=== PATIENT | female | born 1955 | race Caucasian/White ===

== ENCOUNTER → 2016-08-03 | Outpatient (REF) | payer OTHER ==
[~2016-08-03] MED LIST: AUGM500T34 PO; [UNRECOGNIZED DRUG - CODE] PO
[2016-08-03 19:30] LABS: FERRITIN 5 NG/ML (8-252); PERCENT SATURATION 10.8 % (13.2-37.4); TOTAL IRON BINDING CAPACITY 426 UG/DL (250-450)
== END ==
LOC: M LAB REF 16:16
PROVIDERS: ATTEND Nurse Practitioner Adult Health
DX: D50.9 Iron deficiency anemia, unspecified (principal); Z20.5 Contact with and (suspected) exposure to viral hepatitis

== ENCOUNTER → 2016-08-05 | Outpatient (CLI) | payer OTHER ==
--- NOTE | 2016-08-05 17:21 | REP ---
Cervical spine series: Eight views: History: Pain and stiffness. Findings: There is straightening of the normal cervical lordosis. There is degenerative disc narrowing and anterior posterior osteophytic ridging at C 4-5, C5-6 and C6-7. Mild discogenic spurring is seen at C3-4. Flexion/extension lateral views show no subluxation or instability. Open mouth odontoid and AP views are unremarkable. Oblique images demonstrate uncovertebral spurring producing neural foraminal encroachment bilaterally at C4-5 and on the right at C5-6. Swimmers lateral view shows no additional abnormality. Impression: Degenerative spondylosis changes with a bilateral C4-5 and right-sided C5-6 neural foraminal encroachment. Straightening. Signed by Franko Evangelista MD 08/06/2016 08:02 A
== END ==
LOC: M RAD 15:38
PROVIDERS: ATTEND Nurse Practitioner Adult Health
DX: M47.812 Spondylosis without myelopathy or radiculopathy, cervical region (principal)

== ENCOUNTER → 2017-09-30 | Outpatient (REF) | payer OTHER ==
[2017-09-30 17:59] LABS: IRON (FE) 39 UG/DL (50-170)
[2017-09-30 17:59] LABS: FERRITIN 5 NG/ML (8-252)
[2017-09-30 18:55] LABS: HEMATOCRIT 38.6 % (36.0-47.0)
[2017-10-01 13:04] LABS: PRETREATED FOLATE FOR RBCFOL 8.3 NG/ML; RBC FOLATE 451.6 NG/ML (280-791)
== END ==
LOC: M LAB REF 16:47
DX: D50.9 Iron deficiency anemia, unspecified (principal)
CPT/HCPCS: 83540

== ENCOUNTER → 2017-10-05 | Outpatient (REF) | payer OTHER ==
[2017-10-05 21:11] LABS: INFLUENZA A AMPLIFICATION NEGATIVE (NEGATIVE); INFLUENZA B AMPLIFICATION NEGATIVE (NEGATIVE)
== END ==
LOC: M LAB REF 20:15
DX: J11.1 Influenza due to unidentified influenza virus with other respiratory manifestations (principal)

== ENCOUNTER 2019-01-23 09:21 | Day surgery (SDC) | payer OTHER ==
[~2019-01-23] VITALS: Ht 167.6 cm; Wt 94.3 kg
[~2019-01-23 09:21] MED LIST changes: +BUPR300T34 PO; +CELE10TA PO; +D32000CA PO; +ESTR625TA PO; +FERR325T3 PO; +NEXI40CA PO; +NS 1,000 ML IV ONE; +ZOLP6.25 PO
--- NOTE | 2019-01-23 10:13 | ROOR ---
Patient Name: Pema Jones Procedure Date: 01/23/2019 9:58 AM Date of : 1955 Age: 63 Room: [facility] Gender: Female Note Status: Finalized Procedure: Upper Endoscopy + Biopsies Indications: Iron deficiency anemia Providers: Fidel Vizcarra MD Referring MD: Katelin Velez NP Requesting Provider: Medicines: Monitored Anesthesia Care Complications: No immediate complications. Procedure: Pre-Anesthesia Assessment: - The heart rate, respiratory rate, oxygen saturations, blood pressure, adequacy of pulmonary ventilation, and response to care were monitored throughout the procedure. The Endoscope was introduced through the mouth, and advanced to the second part of duodenum. The upper GI endoscopy was accomplished without difficulty. The patient tolerated the procedure well. Findings: The Z-line was variable and was found 35 cm from the incisors. Multiple biopsies were obtained with cold forceps for evaluation to rule out Vazquez's Esophagus randomly at the gastroesophageal junction. A large hiatal hernia was present. No other significant abnormalities were identified in a careful examination of the stomach. Biopsies were taken with a cold forceps in the gastric antrum for Helicobacter pylori testing. The exam of the duodenum was otherwise normal. Biopsies for histology were taken with a cold forceps in the first portion of the duodenum for evaluation of celiac disease. The exam was otherwise without abnormality. Impression: - Z-line variable, 35 cm from the incisors. - Large hiatal hernia. - The examination was otherwise normal. - Multiple biopsies were obtained at the gastroesophageal junction. - Biopsies were taken with a cold forceps for Helicobacter pylori testing. - Biopsies were taken with a cold forceps for evaluation of celiac disease. - The examination was otherwise normal. Recommendation: - Patient has a contact number available for emergencies. The signs and symptoms of potential delayed complications were discussed with the patient. Return to normal activities tomorrow. Written discharge instructions were provided to the patient. - High fiber diet. - Discharge patient to home. - Follow an antireflux regimen. - Continue present medications. - Await pathology results. - Telephone GI clinic for pathology results in 1 week. - Check Portal Online for Path Results.([email or web address]) - The findings and recommendations were discussed with the patient's family. Fidel Vizcarra MD Fidel Vizcarra MD 01/23/2019 10:13:31 AM Electronically signed by Fidel Vizcarra MD Number of Addenda: 0 Note Initiated On: 01/23/2019 9:58 AM Estimated Blood Loss: Estimated blood loss: none.
--- NOTE | 2019-01-23 10:33 | ROOR ---
Patient Name: Pema Jones Procedure Date: 01/23/2019 9:58 AM Date of : 1955 Age: 63 Room: [facility] Gender: Female Note Status: Finalized Procedure: Total Colonoscopy to Cecum Indications: Iron deficiency anemia Providers: Fidel Vizcarra MD Referring MD: Katelin Velez NP Requesting Provider: Medicines: Monitored Anesthesia Care Complications: No immediate complications. Procedure: Pre-Anesthesia Assessment: - The heart rate, respiratory rate, oxygen saturations, blood pressure, adequacy of pulmonary ventilation, and response to care were monitored throughout the procedure. The Colonoscope was introduced through the anus and advanced to the cecum, identified by appendiceal orifice and ileocecal valve. The colonoscopy was performed without difficulty. The patient tolerated the procedure well. The quality of the bowel preparation was good. Findings: The perianal and digital rectal examinations were normal. Non-bleeding internal hemorrhoids were found during retroflexion. The hemorrhoids were small and Grade I (internal hemorrhoids that do not prolapse). Scattered small-mouthed diverticula were found in the recto-sigmoid colon, sigmoid colon and descending colon. The exam was otherwise without abnormality on direct and retroflexion views. Impression: - Non-bleeding internal hemorrhoids. - Diverticulosis in the recto-sigmoid colon, in the sigmoid colon and in the descending colon. - The examination was otherwise normal on direct and retroflexion views. - No specimens collected. - The exam was otherwise normal to the cecum. Recommendation: - Patient has a contact number available for emergencies. The signs and symptoms of potential delayed complications were discussed with the patient. Return to normal activities tomorrow. Written discharge instructions were provided to the patient. - High fiber diet. - Discharge patient to home. - Continue present medications. - Repeat colonoscopy in 10 years for screening purposes. - Return to referring physician. - The findings and recommendations were discussed with the patient's family. Fidel Vizcarra MD Fidel Vizcarra MD 01/23/2019 10:33:26 AM Electronically signed by Fidel Vizcarra MD Number of Addenda: 0 Note Initiated On: 01/23/2019 9:58 AM Estimated Blood Loss: Estimated blood loss: none.
[2019-01-23] MEDS ORDERED: PROPOFOL 200 MG/20 ML VIAL As Ordered ONE ×2 (10:50→10:51)
[2019-01-23] MEDS ORDERED: LIDOCAINE 2% INJ 100 MG/5 ML SDV (FOR ANES.) As Ordered ONE (10:50)
[2019-01-23 11:00] VITALS: BP 168/88
== END 2019-01-23 11:11 | disposition home or self-care (01) ==
LOC: M OPP 09:21
PROVIDERS: ATTEND Internal Medicine Gastroenterology
DX: K64.0 First degree hemorrhoids (principal); K57.30 Diverticulosis of large intestine without perforation or abscess without bleeding; K22.8 Other specified diseases of esophagus; K44.9 Diaphragmatic hernia without obstruction or gangrene; D50.9 Iron deficiency anemia, unspecified

== ENCOUNTER → 2019-05-11 | Outpatient (REF) | payer OTHER ==
[~2019-05-11] MED LIST changes: -NS 1,000 ML IV ONE
== END ==
LOC: M LAB REF 16:44
PROVIDERS: ATTEND Nurse Practitioner Adult Health
DX: D50.9 Iron deficiency anemia, unspecified (principal)

== ENCOUNTER 2019-08-21 17:15 | Emergency (ER) | payer OTHER ==
[~2019-08-21] VITALS: Ht 167.6 cm; Wt 98.5 kg
[~2019-08-21 17:15] MED LIST changes: -BUPR300T34 PO; +BUPR300T92 PO
[2019-08-21 17:16] VITALS: BP 169/96
== END 2019-08-21 19:03 | disposition left against medical advice (07) ==
LOC: M ED 17:15
DX: Z53.21 Procedure and treatment not carried out due to patient leaving prior to being seen by health care provider (principal)

== ENCOUNTER 2019-10-08 14:10 | Emergency (ER) | payer OTHER ==
[~2019-10-08] VITALS: Ht 167.6 cm; Wt 90.9 kg
[2019-10-08] MEDS ORDERED: HM A10TA PO (14:39)
[2019-10-08 14:59] LABS: BASO # 0.1 10^3/uL (0.0-0.2); BASO % 1.3 % (0.0-1.0); EOS # 0.1 10^3/uL (0.0-0.5); HEMATOCRIT 43.2 % (36.0-47.0); HEMOGLOBIN 14.5 g/dl (12.0-15.5); LYMPH # 1.6 10^3/uL (1.5-5.0); LYMPH % 26.8 % (24.0-44.0); MEAN CORPUSCULAR HEMOGLOBIN 29.4 pg (27.0-33.0); MEAN CORPUSCULAR HGB CONC 33.6 g/dl (32.0-36.5); MEAN CORPUSCULAR VOLUME 87.6 fl (80.0-96.0); MONO # 0.5 10^3/uL (0.0-0.8); MONO % 7.5 % (0.0-5.0); NEUTROPHILS # 3.7 10^3/uL (1.5-8.5); NEUTROPHILS % 62.1 % (36.0-66.0); PLATELET COUNT, AUTOMATED 278 10^3/uL (150-450); RED BLOOD COUNT 4.93 10^6/uL (4.00-5.40)
[2019-10-08 15:28] LABS: ALBUMIN 3.6 GM/DL (3.2-5.2); ALT/SGPT 17 U/L (12-78); BILIRUBIN,DIRECT 0.2 MG/DL (0.0-0.2); BILIRUBIN,TOTAL 0.4 MG/DL (0.2-1.0); BLOOD UREA NITROGEN 17 MG/DL (7-18); CALCIUM LEVEL 8.9 MG/DL (8.8-10.2); CARBON DIOXIDE LEVEL 24 MEQ/L (21-32); CHLORIDE LEVEL 112 MEQ/L (98-107); CK-MB VALUE MASS < 1.0 NG/ML (<3.6); CPK CREATINE PHOSPHOKINASE 48 U/L (26-192); CREATININE FOR GFR 0.73 MG/DL (0.55-1.30); GLOMERULAR FILTRATION RATE > 60.0 (>45); GLUCOSE, FASTING 92 MG/DL (70-100); MAGNESIUM LEVEL 2.3 MG/DL (1.8-2.4); MB/CK RELATIVE INDEX 2.08 (< OR =4); POTASSIUM SERUM 4.1 MEQ/L (3.5-5.1); SODIUM LEVEL 141 MEQ/L (136-145); TOTAL PROTEIN 6.6 GM/DL (6.4-8.2); TROPONIN I < 0.02 NG/ML (< 0.10)
[2019-10-08 16:42] VITALS: BP 128/90
--- NOTE | 2019-10-09 07:25 | ECGEPIP ---
[facility] - ED Test Date: 2019-10-08 Pat Name: REUBEN ZELAYA Department: Room: - Gender: Female Student Support Advisor: : 1955 Requested By: Madison Duarte Order Number: [id number] Reading MD: Meri Gifford Measurements Intervals [place] Rate: 110 P: 71 IN: 124 QRS: 7 QRSD: 97 T: 24 QT: 314 QTc: 425 Interpretive Statements SINUS TACHYCARDIA NONSPECIFIC ST & T-WAVE ABNORMALITY ABNORMAL RHYTHM ECG NO PRIOR Electronically Signed on 10-09-2019 7:25:09 EDT by Meri Gifford
--- NOTE | 2019-10-09 08:21 | REP ---
REASON: Chest pain. FINDINGS: The technique utilized in obtaining the radiograph has magnified the cardiac silhouette and accentuated the interstitial markings. The superior mediastinal structures are midline. The cardiac silhouette is unremarkable in size, shape, and position. The diaphragmatic surfaces of the lungs are regular, and the costophrenic angles are clear. The pulmonary newman are clear. The imaged osseous structures are intact. IMPRESSION: There is no acute cardiopulmonary disease. Electronically Signed by Dann Brunner DO 10/09/2019 01:30 P
== END 2019-10-08 16:44 | disposition home or self-care (01) ==
LOC: EDBD 14:10 → M ED 14:10
DX: R00.2 Palpitations (principal); E78.9 Disorder of lipoprotein metabolism, unspecified; Z79.899 Other long term (current) drug therapy

== ENCOUNTER 2020-05-01 08:12 | Emergency (ER) | payer OTHER ==
[~2020-05-01] VITALS: Ht 167.6 cm; Wt 93.5 kg
[2020-05-01 08:12] VITALS: BP 145/74
[~2020-05-01 08:12] MED LIST changes: +HM A10TA PO; -ZOLP6.25 PO; +ZOLP6.2517 PO
[2020-05-01] MEDS ORDERED: CHLO125TA (08:19)
[2020-05-01] MEDS ORDERED: CAND4TAB (08:19)
[2020-05-01] MEDS ORDERED: DERMABOND TOPICAL SKIN ADHESIVE TOP ONE (08:30)
== END 2020-05-01 09:20 | disposition home or self-care (01) ==
LOC: M ED 08:12
DX: S01.112A Laceration without foreign body of left eyelid and periocular area, initial encounter (principal); S60.511A Abrasion of right hand, initial encounter; W01.10XA Fall on same level from slipping, tripping and stumbling with subsequent striking against unspecified object, initial encounter; Y92.9 Unspecified place or not applicable; Y93.9 Activity, unspecified; Y99.9 Unspecified external cause status; Z79.899 Other long term (current) drug therapy

== ENCOUNTER 2020-12-24 12:31 | Emergency (ER) | payer OTHER ==
[~2020-12-24] VITALS: Ht 167.6 cm; Wt 89.0 kg
[~2020-12-24 12:31] MED LIST changes: +CAND4TAB; +CETI-39 PO; +CHLO125TA; -HM A10TA PO
[2020-12-24 13:37] LABS: BASO # 0.1 10^3/uL (0.0-0.2); BASO % 0.8 % (0.0-1.0); EOS # 0.1 10^3/uL (0.0-0.5); EOS % 1.1 % (0.0-3.0); HEMATOCRIT 40.8 % (36.0-47.0); HEMOGLOBIN 13.9 g/dl (12.0-15.5); LYMPH # 1.4 10^3/uL (1.5-5.0); LYMPH % 23.3 % (24.0-44.0); MEAN CORPUSCULAR HEMOGLOBIN 29.9 pg (27.0-33.0); MEAN CORPUSCULAR HGB CONC 34.1 g/dl (32.0-36.5); MEAN CORPUSCULAR VOLUME 87.7 fl (80.0-96.0); MONO # 0.4 10^3/uL (0.0-0.8); MONO % 6.6 % (2.0-8.0); NEUTROPHILS # 4.2 10^3/uL (1.5-8.5); NEUTROPHILS % 67.9 % (36.0-66.0); PLATELET COUNT, AUTOMATED 294 10^3/uL (150-450); RED BLOOD COUNT 4.65 10^6/uL (4.00-5.40); WHITE BLOOD COUNT 6.2 10^3/uL (4.0-10.0)
[2020-12-24] MEDS ORDERED: NS 1,000 ML IV ONE (13:55)
[2020-12-24] MEDS ORDERED: KETOROLAC 30 MG/ML 1ML VIAL IV ONE (13:55)
[2020-12-24] MEDS ORDERED: ONDANSETRON 4MG/2ML VIAL IV ONE (13:55)
[2020-12-24 14:15] LABS: ALBUMIN 3.7 GM/DL (3.2-5.2); BILIRUBIN,DIRECT 0.2 MG/DL (0.0-0.2); BILIRUBIN,TOTAL 0.8 MG/DL (0.2-1.0); TOTAL PROTEIN 7.1 GM/DL (6.4-8.2)
--- NOTE | 2020-12-24 14:32 | REP ---
INDICATION: left flank/llq pain. COMPARISON: None TECHNIQUE: Standard helical technique without intravenous or oral bowel preparatory contrast secondary to stone protocol utilized for left flank pain. FINDINGS: The lung bases are clear. Incidental bilateral small diaphragmatic rents are seen posteriorly. There is a moderate hiatal hernia. Limited evaluation of the solid intra-abdominal organs and gallbladder show no gross abnormalities. Limited evaluation of the pancreas, adrenal glands, and right kidney show no abnormalities. There is moderate left-sided hydronephrosis and hydroureter. In the distal left ureter there is an 8 mm sized calculus. There are no urinary bladder calcifications. Limited evaluation of the bowel loops and the mesenteries show no gross abnormalities. There is no evidence of free fluid or free air. Bone window technique throughout the examination shows the osseous structures to be within normal limits for the patient's age. IMPRESSION: Distal left ureterolith with resultant findings as described above. <Electronically signed by Dann Brunner > 12/24/20 [id number]
[2020-12-24] MEDS ORDERED: cefTRIAXone SOD 1 GM in D5W MINI-BAG PLUS 50 ML IV ONE (16:55)
[2020-12-24] MEDS ORDERED: HYDR-3713 PO (16:56)
[2020-12-24] MEDS ORDERED: FLOM0.4C39 PO (16:56)
[2020-12-24] MEDS ORDERED: ONDA4TAB6 PO (16:56)
[2020-12-24] MEDS ORDERED: KETO10TAB PO (16:56)
[2020-12-24] MEDS ORDERED: BACT800T5 PO (16:56)
[2020-12-24 17:35] VITALS: BP 148/75
== END 2020-12-24 17:37 | disposition home or self-care (01) ==
LOC: M ED 12:31
DX: N20.1 Calculus of ureter (principal); N39.0 Urinary tract infection, site not specified; Z79.899 Other long term (current) drug therapy
CPT/HCPCS: 74176; 80047; 80076; 81001; 83690; 85025; 87088; 87186; 96361; 96365; 96375; 99284; J0696; J1885; J2405

== ENCOUNTER 2021-01-12 12:48 | Emergency (ER) | payer OTHER ==
[~2021-01-12] VITALS: Ht 167.6 cm; Wt 84.7 kg
[~2021-01-12 12:48] MED LIST changes: -ESTR2TAB2
[2021-01-12] MEDS ORDERED: ESTR2TAB2 (13:08)
[2021-01-12 14:01] LABS: BASO % 0.9 % (0.0-1.0); EOS # 0.1 10^3/uL (0.0-0.5); EOS % 2.5 % (0.0-3.0); HEMATOCRIT 43.5 % (36.0-47.0); HEMOGLOBIN 14.6 g/dl (12.0-15.5); LYMPH # 0.5 10^3/uL (1.5-5.0); LYMPH % 16.4 % (24.0-44.0); MEAN CORPUSCULAR HEMOGLOBIN 29.1 pg (27.0-33.0); MEAN CORPUSCULAR HGB CONC 33.6 g/dl (32.0-36.5); MEAN CORPUSCULAR VOLUME 86.7 fl (80.0-96.0); MONO # 0.4 10^3/uL (0.0-0.8); MONO % 11.3 % (2.0-8.0); NEUTROPHILS # 2.2 10^3/uL (1.5-8.5); PLATELET COUNT, AUTOMATED 215 10^3/uL (150-450); RED BLOOD COUNT 5.02 10^6/uL (4.00-5.40); WHITE BLOOD COUNT 3.2 10^3/uL (4.0-10.0)
[2021-01-12 14:36] LABS: ALBUMIN 3.1 GM/DL (3.2-5.2); ALT/SGPT 272 U/L (12-78); BILIRUBIN,DIRECT 1.1 MG/DL (0.0-0.2); BILIRUBIN,TOTAL 1.8 MG/DL (0.2-1.0); BLOOD UREA NITROGEN 14 MG/DL (7-18); CALCIUM LEVEL 8.8 MG/DL (8.8-10.2); CARBON DIOXIDE LEVEL 27 MEQ/L (21-32); CHLORIDE LEVEL 101 MEQ/L (98-107); CREATININE FOR GFR 1.07 MG/DL (0.55-1.30); GLOMERULAR FILTRATION RATE 54.8 (>45); GLUCOSE, FASTING 107 MG/DL (70-100); LIPASE 213 U/L (73-393); SODIUM LEVEL 135 MEQ/L (136-145); TOTAL PROTEIN 6.8 GM/DL (6.4-8.2)
[2021-01-12] MEDS ORDERED: ISOVUE-370 76% 100ML VIAL As Ordered ONE (14:59)
--- NOTE | 2021-01-12 15:49 | REP ---
INDICATION: RLQ, RUG, LUQ pain, elevated LFTS. COMPARISON: 12/24/2020 the latest prior and noncontrast enhanced exam TECHNIQUE: Standard helical technique after the intravenous administration of 100 cc Isovue 370. No oral bowel preparatory contrast was administered prior to the exam. FINDINGS: The lung bases are unchanged. The liver, gallbladder, spleen, pancreas, adrenal glands, and kidneys are within normal limits. Note is made of a nonobstructing 7 mm sized left nephrolith which is stable. The abdominal aorta and para-aortic regions are within normal limits. There is no free fluid or free air. There is no mass or adenopathy. Left norma pelvic phleboliths are noted status quo. The bowel loops and the mesenteries are unremarkable. The osseous structures are stable. IMPRESSION: No acute abnormality. <Electronically signed by Dann Brunner > 01/12/21 [id number]
[2021-01-12 16:59] VITALS: BP 112/76
[2021-01-13 17:49] LABS: HEPATITIS B SURFACE ANTIGEN NEGATIVE (NEGATIVE)
[2021-01-13 18:15] LABS: HEPATITIS C VIRUS ABY INDEX < 0.0 INDEX (<0.8)
[2021-01-13 18:16] LABS: HEPATITIS B CORE ANTIBODY IGM NEGATIVE (NEGATIVE)
[2021-01-13 18:18] LABS: HEPATITIS A ANTIBODY IGM NEGATIVE (NEGATIVE)
== END 2021-01-12 17:00 | disposition home or self-care (01) ==
LOC: M ED 12:48
DX: R94.5 Abnormal results of liver function studies (principal); I10 Essential (primary) hypertension; K21.9 Gastro-esophageal reflux disease without esophagitis; Z87.891 Personal history of nicotine dependence
CPT/HCPCS: 36415; 74177; 80048; 80076; 83690; 85025; 86705; 86709; 86803; 87340; 99284; Q9967

== ENCOUNTER → 2021-01-12 | Outpatient (CLI) | payer OTHER ==
[~2021-01-12] MED LIST changes: +BACT800T5 PO; +ESTR2TAB2; +FLOM0.4C39 PO; +HYDR-3713 PO; +KETO10TAB PO; +ONDA4TAB6 PO
[2021-01-12 11:42] LABS: BASO # 0.1 10^3/uL (0.0-0.2); BASO % 1.3 % (0.0-1.0); EOS # 0.1 10^3/uL (0.0-0.5); EOS % 3.2 % (0.0-3.0); HEMATOCRIT 45.2 % (36.0-47.0); HEMOGLOBIN 15.5 g/dl (12.0-15.5); LYMPH # 0.7 10^3/uL (1.5-5.0); LYMPH % 19.8 % (24.0-44.0); MEAN CORPUSCULAR HEMOGLOBIN 29.6 pg (27.0-33.0); MEAN CORPUSCULAR HGB CONC 34.3 g/dl (32.0-36.5); MEAN CORPUSCULAR VOLUME 86.3 fl (80.0-96.0); MONO # 0.4 10^3/uL (0.0-0.8); MONO % 11.3 % (2.0-8.0); NEUTROPHILS # 2.4 10^3/uL (1.5-8.5); NEUTROPHILS % 64.1 % (36.0-66.0); PLATELET COUNT, AUTOMATED 239 10^3/uL (150-450); RED BLOOD COUNT 5.24 10^6/uL (4.00-5.40); WHITE BLOOD COUNT 3.7 10^3/uL (4.0-10.0)
[2021-01-12 12:06] LABS: ALBUMIN 3.5 GM/DL (3.2-5.2); BILIRUBIN,TOTAL 1.8 MG/DL (0.2-1.0); CALCIUM LEVEL 9.4 MG/DL (8.8-10.2); CREATININE FOR GFR 1.1 MG/DL (0.55-1.30); GLOMERULAR FILTRATION RATE 53.1 (>45); POTASSIUM SERUM 3.6 MEQ/L (3.5-5.1); TOTAL PROTEIN 7.2 GM/DL (6.4-8.2)
== END ==
LOC: M LAB 11:16
PROVIDERS: ATTEND Physician Assistant
DX: R10.84 Generalized abdominal pain (principal); N20.9 Urinary calculus, unspecified

== ENCOUNTER → 2021-01-12 | Outpatient (REF) | payer OTHER | LOC: M LAB REF 19:23 | PROVIDERS: ATTEND Physician Assistant | DX: R10.84 Generalized abdominal pain (principal); N20.9 Urinary calculus, unspecified ==

== ENCOUNTER → 2021-01-15 | Outpatient (REF) | payer OTHER ==
[~2021-01-15] MED LIST changes: +ESTR2TAB2
[2021-01-15 16:40] LABS: MONO SCRN NEGATIVE (NEGATIVE)
[2021-01-15 16:50] LABS: FERRITIN 318 NG/ML (8-252); IRON (FE) 145 UG/DL (50-170); LIPASE 224 U/L (73-393)
== END ==
LOC: M LAB REF 15:26
PROVIDERS: ATTEND Nurse Practitioner Adult Health
DX: R94.5 Abnormal results of liver function studies (principal); D50.9 Iron deficiency anemia, unspecified

== ENCOUNTER 2021-02-07 01:46 | Emergency (ER) | payer OTHER, MEDICARE ==
[~2021-02-07] VITALS: Ht 167.6 cm; Wt 83.6 kg
[2021-02-07 02:08] LABS: BASO # 0.1 10^3/uL (0.0-0.2); BASO % 1.1 % (0.0-1.0); EOS # 0.2 10^3/uL (0.0-0.5); EOS % 3.1 % (0.0-3.0); HEMATOCRIT 39.3 % (36.0-47.0); HEMOGLOBIN 13.4 g/dl (12.0-15.5); LYMPH % 38.3 % (24.0-44.0); MEAN CORPUSCULAR HEMOGLOBIN 29.8 pg (27.0-33.0); MEAN CORPUSCULAR HGB CONC 34.1 g/dl (32.0-36.5); MEAN CORPUSCULAR VOLUME 87.5 fl (80.0-96.0); MONO # 0.7 10^3/uL (0.0-0.8); MONO % 8.3 % (2.0-8.0); NEUTROPHILS # 3.8 10^3/uL (1.5-8.5); NEUTROPHILS % 48.7 % (36.0-66.0); PLATELET COUNT, AUTOMATED 274 10^3/uL (150-450); RED BLOOD COUNT 4.49 10^6/uL (4.00-5.40); WHITE BLOOD COUNT 7.9 10^3/uL (4.0-10.0)
[2021-02-07 02:18] LABS: INR 0.93; PROTHROMBIN TIME 12.7 SECONDS (12.5-14.3)
[2021-02-07 02:19] LABS: PARTIAL THROMBOPLASTIN TIME 25.3 SECONDS (24.2-38.5)
[2021-02-07 02:30] LABS: ERYTHROCYTE SEDIMENTATION RATE 9 mm/hr (0-30)
[2021-02-07 02:35] LABS: ALBUMIN 3.4 GM/DL (3.2-5.2); ALT/SGPT 27 U/L (12-78); BILIRUBIN,DIRECT 0.3 MG/DL (0.0-0.2); BILIRUBIN,TOTAL 0.8 MG/DL (0.2-1.0); BLOOD UREA NITROGEN 18 MG/DL (7-18); C REACTIVE PROTEIN QUANTITATIV 0.43 MG/DL (0.00-0.30); CALCIUM LEVEL 8.7 MG/DL (8.8-10.2); CARBON DIOXIDE LEVEL 21 MEQ/L (21-32); CHLORIDE LEVEL 103 MEQ/L (98-107); CK-MB VALUE MASS 1.4 NG/ML (<3.6); CPK CREATINE PHOSPHOKINASE 40 U/L (26-192); CREATININE FOR GFR 0.91 MG/DL (0.55-1.30); GLOMERULAR FILTRATION RATE > 60.0 (>45); GLUCOSE, FASTING 156 MG/DL (70-100); MAGNESIUM LEVEL 1.8 MG/DL (1.8-2.4); NT-PRO BNP 107 PG/ML (<125); POTASSIUM SERUM 3.3 MEQ/L (3.5-5.1); SODIUM LEVEL 137 MEQ/L (136-145); TOTAL PROTEIN 6.5 GM/DL (6.4-8.2); TROPONIN I < 0.02 NG/ML (< 0.10)
[2021-02-07] MEDS ORDERED: POTASSIUM CHLORIDE 10 MEQ SR TABLET PO ONE (02:45)
[2021-02-07] MEDS ORDERED: METOPROLOL TART 25 MG TABLET PO ONE (02:50)
[2021-02-07 03:01] VITALS: BP 121/73
[2021-02-07 03:07] LABS: FREE T4 1.05 NG/DL (0.76-1.46)
--- NOTE | 2021-02-07 05:30 | REPVR ---
PROCEDURE INFORMATION: Exam: XR Chest Exam date and time: 02/07/2021 2:13 AM Age: 65 years old Clinical indication: Other: Chest pain TECHNIQUE: Imaging protocol: XR of the chest. Views: 1 view. COMPARISON: 1. CR PORTABLE CHEST X-RAY 2019-10-08 14:[address] ABD/PEL W/IV CONTRAST ONLY 2021-01-12 15:[address] ABD PELVIS W/O CONTRAST 2020-12-24 14:01 FINDINGS: Lungs: Unremarkable. No consolidation. Pleural spaces: Unremarkable. No pleural effusion. No pneumothorax. Heart/Mediastinum: Unremarkable. No cardiomegaly. Bones/joints: Unremarkable. IMPRESSION: No acute findings. Electronically signed by: Corky Chan On 02/07/2021 05:29:59 AM
--- NOTE | 2021-02-07 05:41 | ECGEPIP ---
[facility] - ED Test Date: 2021-02-07 Pat Name: REUBEN ZELAYA Department: Room: - Gender: Female Safety Engineer: [place] : 1955 Requested By: CORKY Virk Order Number: [id number] Reading MD: Corky Bajwa Measurements Intervals [place] Rate: 95 P: 59 ID: [id number] QRS: 15 QRSD: 104 T: 13 QT: 366 QTc: 459 Interpretive Statements Normal sinus rhythm Nonspecific ST-T wave abnormalities Similar to tracing done 10-08-19 Electronically Signed on 02-07-2021 5:41:19 EDT by Corky Bajwa
[2021-02-07 06:25] LABS: CK-MB VALUE MASS 1.4 NG/ML (<3.6); MB/CK RELATIVE INDEX 4.24 (< OR =4); TROPONIN I 0.08 NG/ML (< 0.10)
[2021-02-07] MEDS ORDERED: ATEN25TA PO (06:55)
[2021-02-07 07:06] VITALS: BP 117/75
== END 2021-02-07 07:07 | disposition home or self-care (01) ==
LOC: M ED 01:46
DX: R00.0 Tachycardia, unspecified (principal); I10 Essential (primary) hypertension; Z79.899 Other long term (current) drug therapy

== ENCOUNTER → 2021-04-03 | Outpatient (REF) | payer MEDICARE, OTHER ==
[~2021-04-03] MED LIST changes: +ATEN25TA PO; -CETI-39 PO; +CETI-43 PO
== END ==
LOC: M WUC 15:41
PROVIDERS: ATTEND Physician Assistant
DX: N39.0 Urinary tract infection, site not specified (principal)

== ENCOUNTER → 2021-04-15 | Outpatient (REF) | payer MEDICARE, OTHER ==
[2021-04-15 16:46] LABS: FREE T3 2.6 PG/ML (2.2-4.0)
[2021-04-15 16:47] LABS: THYROGLOBULIN ANTIBODY 17.8 U/ML (<60.0); THYROID PEROXIDASE ANTIBODY < 28.0 U/ML (<60.0)
[2021-04-15 16:49] LABS: APPEARANCE, URINE CLOUDY (CLEAR); BILIRUBIN, URINE AUTO NEGATIVE (NEGATIVE); BLOOD, URINE BLOOD NEGATIVE (NEGATIVE); COLOR, URINE YELLOW (YELLOW); GLUCOSE, URINE (UA) AUTO NEGATIVE (NEGATIVE); KETONE, URINE AUTO NEGATIVE (NEGATIVE); LEUKOCYTE ESTERASE, URINE AUTO 2+ (NEGATIVE); NITRITE, URINE AUTO NEGATIVE (NEGATIVE); PROTEIN, URINE AUTO NEGATIVE (NEGATIVE); SPECIFIC GRAVITY URINE AUTO 1.014 (1.002-1.035)
[2021-04-15 17:22] LABS: BACTERIA, URINE AUTO 1+ (NEGATIVE); MUCUS, URINE SMALL (NEGATIVE); RBC, URINE AUTO 4 /HPF (0-3); SQUAMOUS EPITHELIAL CELL UR AU 2 /HPF (0-6); WBC, URINE AUTO 45 /HPF (0-3)
== END ==
LOC: M LAB REF 15:57
PROVIDERS: ATTEND Nurse Practitioner Adult Health
DX: E03.9 Hypothyroidism, unspecified (principal); R53.83 Other fatigue; R50.9 Fever, unspecified

== ENCOUNTER → 2021-06-25 | Outpatient (REF) | payer MEDICARE, OTHER ==
[~2021-06-25] MED LIST changes: -ESTR2TAB2; +ESTR2TAB3; +LEVO25CA; +LUNE2TAB23 PO
[2021-06-25 16:52] LABS: BASO # 0.1 10^3/uL (0.0-0.2); BASO % 1.1 % (0.0-1.0); EOS # 0.1 10^3/uL (0.0-0.5); EOS % 1.7 % (0.0-3.0); HEMATOCRIT 37.7 % (36.0-47.0); HEMOGLOBIN 12.6 g/dl (12.0-15.5); LYMPH # 1.9 10^3/uL (1.5-5.0); LYMPH % 28.9 % (24.0-44.0); MEAN CORPUSCULAR HEMOGLOBIN 30.1 pg (27.0-33.0); MEAN CORPUSCULAR HGB CONC 33.4 g/dl (32.0-36.5); MEAN CORPUSCULAR VOLUME 90.2 fl (80.0-96.0); MONO # 0.5 10^3/uL (0.0-0.8); MONO % 7.5 % (2.0-8.0); NEUTROPHILS # 3.9 10^3/uL (1.5-8.5); NEUTROPHILS % 60.5 % (36.0-66.0); PLATELET COUNT, AUTOMATED 266 10^3/uL (150-450); RED BLOOD COUNT 4.18 10^6/uL (4.00-5.40); WHITE BLOOD COUNT 6.4 10^3/uL (4.0-10.0)
[2021-06-25 16:57] LABS: APPEARANCE, URINE CLEAR (CLEAR); BACTERIA, URINE AUTO NEGATIVE (NEGATIVE); BILIRUBIN, URINE AUTO NEGATIVE (NEGATIVE); BLOOD, URINE BLOOD NEGATIVE (NEGATIVE); COLOR, URINE YELLOW (YELLOW); GLUCOSE, URINE (UA) AUTO NEGATIVE (NEGATIVE); KETONE, URINE AUTO NEGATIVE (NEGATIVE); LEUKOCYTE ESTERASE, URINE AUTO NEGATIVE (NEGATIVE); MUCUS, URINE SMALL (NEGATIVE); NITRITE, URINE AUTO NEGATIVE (NEGATIVE); PROTEIN, URINE AUTO NEGATIVE (NEGATIVE); RBC, URINE AUTO 0 /HPF (0-3); SPECIFIC GRAVITY URINE AUTO 1.011 (1.002-1.035); SQUAMOUS EPITHELIAL CELL UR AU 0 /HPF (0-6); UROBILINOGEN, URINE AUTO 0.2 mg/dL (0.0-2.0); WBC, URINE AUTO 1 /HPF (0-3)
[2021-06-25 17:12] LABS: CREATININE,RANDOM URINE 45.2 MG/DL; TOTAL PROTEIN,RANDOM URINE 6.5 MG/DL (0.0-12.0)
[2021-06-25 17:16] LABS: ALBUMIN 3.5 GM/DL (3.2-5.2); ALT/SGPT 17 U/L (12-78); BILIRUBIN,TOTAL 0.6 MG/DL (0.2-1.0); BLOOD UREA NITROGEN 19 MG/DL (7-18); C REACTIVE PROTEIN QUANTITATIV 0.48 MG/DL (0.00-0.30); CALCIUM LEVEL 8.9 MG/DL (8.8-10.2); CARBON DIOXIDE LEVEL 25 MEQ/L (21-32); CHLORIDE LEVEL 106 MEQ/L (98-107); COMPLEMENT C3 74 MG/DL (90-180); COMPLEMENT C4 15 MG/DL (10-40); CREATININE FOR GFR 0.85 MG/DL (0.55-1.30); GLOMERULAR FILTRATION RATE > 60.0 (>45); GLUCOSE, FASTING 89 MG/DL (70-100); POTASSIUM SERUM 3.8 MEQ/L (3.5-5.1); SODIUM LEVEL 139 MEQ/L (136-145); TOTAL PROTEIN 6.6 GM/DL (6.4-8.2)
[2021-06-25 17:23] LABS: TOTAL 25(OH) VITAMIN D 45.1 NG/ML (30.0-100.0)
[2021-06-25 17:37] LABS: ERYTHROCYTE SEDIMENTATION RATE 12 mm/hr (0-30)
[2021-06-26 11:12] LABS: ALBUMIN 4.09 GM/DL (3.29-5.55); ALBUMIN % 61.9 % (55.8-66.1); ALPHA-1-GLOBULIN % 4.6 % (2.9-4.9); ALPHA-2-GLOBULINS 0.59 GM/DL (0.42-0.99); ALPHA-2-GLOBULINS % 8.9 % (7.1-11.8); BETA-1-GLOBULINS 0.43 GM/DL (0.28-0.60); BETA-1-GLOBULINS % 6.5 % (4.7-7.2); BETA-2-GLOBULINS 0.23 GM/DL (0.19-0.55); BETA-2-GLOBULINS % 3.5 % (3.2-6.5); GAMMA GLOBULIN % 14.6 % (11.1-18.8); GAMMA GLOBULINS 0.96 GM/DL (0.65-1.58)
[2021-06-28 23:07] LABS: VITAMIN D 1,25 DIHYDROXY 96.9 pg/mL (19.9-79.3)
== END ==
LOC: M SFHCRHEU 14:07
PROVIDERS: ATTEND Internal Medicine Rheumatology
DX: R76.8 Other specified abnormal immunological findings in serum (principal); H04.123 Dry eye syndrome of bilateral lacrimal glands; Z79.899 Other long term (current) drug therapy
CPT/HCPCS: 36415; 80053; 81001; 82164; 82306; 82570; 82595; 82652; 82787; 84156; 84165; 85025; 85652; 86140; 86160; 86335; G0463

== ENCOUNTER → 2022-01-29 | Outpatient (CLI) | payer MEDICARE, OTHER ==
[~2022-01-29] MED LIST changes: -CAND4TAB; +CAND4TAB7; -CETI-43 PO; +GNPTAB36 PO
== END ==
LOC: M PLAIMG 13:06
PROVIDERS: ATTEND Nurse Practitioner Adult Health
DX: M79.601 Pain in right arm (principal); M79.602 Pain in left arm

== ENCOUNTER → 2022-03-11 | Outpatient (CLI) | payer MEDICARE, OTHER ==
[~2022-03-11] MED LIST changes: -CAND4TAB7; +CAND4TAB7 PO; -CHLO125TA; +CHLO125TA PO; -ESTR2TAB3; +ESTR2TAB3 PO; -LEVO25CA; +LEVO25CA PO; +VITA100093 PO
== END ==
LOC: M LABSMTC 09:42
PROVIDERS: ATTEND Anesthesiology
DX: Z11.52 Encounter for screening for COVID-19 (principal)

== ENCOUNTER → 2022-04-06 | Outpatient (CLI) | payer MEDICARE, OTHER | LOC: M PLAIMG 13:38 | PROVIDERS: ATTEND Nurse Practitioner Adult Health | DX: M43.12 Spondylolisthesis, cervical region (principal); M79.601 Pain in right arm; M79.602 Pain in left arm ==

== ENCOUNTER → 2022-04-15 | Outpatient (CLI) | payer MEDICARE, OTHER | LOC: M LABSMTC 09:57 | PROVIDERS: ATTEND Anesthesiology | DX: Z01.812 Encounter for preprocedural laboratory examination (principal); Z11.52 Encounter for screening for COVID-19 ==

== ENCOUNTER 2022-04-20 10:09 | Day surgery (SDC) | payer MEDICARE, OTHER ==
[~2022-04-20] VITALS: Ht 167.6 cm; Wt 95.2 kg
[~2022-04-20 10:09] MED LIST changes: +LIDOCAINE 1% SDV 5ML VIAL As Ordered ONE; +LR 1,000 ML IV SCH
[2022-04-20] MEDS ORDERED: FLURBIPROFEN 0.03% OPHTH SOLN 2.5 ML OS SCH (12:20)
[2022-04-20] MEDS ORDERED: PHENYLEPHRINE 2.5% OPHTH SOL 2ML OS SCH (12:20)
[2022-04-20] MEDS ORDERED: TETRACAINE 0.5% OPHTH SOLN 4ML OS SCH (12:20)
[2022-04-20] MEDS ORDERED: CYCLOPENTOLATE 1% OPHTH SOLN 2 ML BTL OS SCH (12:20)
[2022-04-20] MEDS ORDERED: MIDAZOLAM INJ 2MG/2ML VIAL (J2250 PER 1MG) As Ordered ONE (13:44)
[2022-04-20] MEDS ORDERED: fentaNYL 100 MCG/2 ML INJECTION As Ordered ONE (13:45)
[2022-04-20 14:45] VITALS: BP 115/81
== END 2022-04-20 14:55 | disposition home or self-care (01) ==
LOC: M SDC 10:09
PROVIDERS: ATTEND Ophthalmology
DX: H25.12 Age-related nuclear cataract, left eye (principal)
CPT/HCPCS: 66984; J2250; J3010; V2632

== ENCOUNTER → 2022-04-23 | Outpatient (REF) | payer MEDICARE, OTHER ==
[~2022-04-23] MED LIST changes: -LIDOCAINE 1% SDV 5ML VIAL As Ordered ONE; -LR 1,000 ML IV SCH
== END ==
LOC: M LAB REF 08:20
PROVIDERS: ATTEND Surgery
DX: L72.3 Sebaceous cyst (principal)

== ENCOUNTER → 2024-07-09 | Outpatient (CLI) | payer MEDICARE, OTHER ==
[~2024-07-09] MED LIST changes: +BUPR-597 PO; -BUPR300T92 PO; -LUNE2TAB23 PO; +LUNE2TAB28 PO; +ONDA-282 PO; -ONDA4TAB6 PO; -ZOLP6.2517 PO; +ZOLP6.2526 PO
== END ==
LOC: M EKG 12:53
PROVIDERS: ATTEND Physician Assistant
DX: R00.2 Palpitations (principal); I47.10 Supraventricular tachycardia, unspecified

== ENCOUNTER → 2024-11-16 | Outpatient (CLI) | payer MEDICARE, OTHER ==
[~2024-11-16] MED LIST changes: -BUPR-597 PO; +BUPR-766 PO; -FLOM0.4C39 PO; -LEVO25CA PO; +LEVO25CA2 PO; +TAMS-18 PO
[2024-11-16 15:52] LABS: BASO # 0.1 10^3/uL (0.0-0.2); EOS # 0.2 10^3/uL (0.0-0.5); EOS % 2.4 % (0.0-3.0); HEMATOCRIT 41.2 % (36.0-47.0); HEMOGLOBIN 13.5 g/dl (12.0-15.5); LYMPH # 1.3 10^3/uL (1.5-5.0); LYMPH % 20.4 % (24.0-44.0); MEAN CORPUSCULAR HEMOGLOBIN 29.5 pg (27.0-33.0); MEAN CORPUSCULAR HGB CONC 32.8 g/dl (32.0-36.5); MONO # 0.4 10^3/uL (0.0-0.8); MONO % 6.3 % (2.0-8.0); NEUTROPHILS # 4.3 10^3/uL (1.5-8.5); NEUTROPHILS % 69.4 % (36.0-66.0); PLATELET COUNT, AUTOMATED 232 10^3/uL (150-450); RED BLOOD COUNT 4.58 10^6/uL (4.00-5.40); WHITE BLOOD COUNT 6.2 10^3/uL (4.0-10.0)
[2024-11-16 16:15] LABS: ALBUMIN 3.4 G/DL (3.2-5.2)
[2024-11-16 16:23] LABS: PERCENT SATURATION 35.6 % (13.2-45.0)
[2024-11-16 16:25] LABS: FERRITIN 126.1 NG/ML (7.3-270.7)
== END ==
LOC: M LAB 14:56
PROVIDERS: ATTEND Nurse Practitioner Adult Health
DX: Z01.818 Encounter for other preprocedural examination (principal); M25.562 Pain in left knee; M17.9 Osteoarthritis of knee, unspecified

== ENCOUNTER → 2024-12-07 | Outpatient (REF) | payer MEDICARE, OTHER ==
[2024-12-07 14:38] LABS: INR 0.88; PARTIAL THROMBOPLASTIN TIME 27.6 SECONDS (24.8-34.2); PROTHROMBIN TIME 12.3 SECONDS (12.5-14.5)
== END ==
LOC: M LAB REF 13:29
PROVIDERS: ATTEND Internal Medicine
DX: Z01.810 Encounter for preprocedural cardiovascular examination (principal)